=== PATIENT | female | born 1995 | race African-American/Black ===

== ENCOUNTER 2024-07-27 19:49 | Emergency (ER) | payer OTHER ==
[~2024-07-27] VITALS: Ht 167.6 cm; Wt 108.9 kg
[2024-07-27] MEDS: ONDANSETRON HCL 4 MG/5 ML SOLUTION PO ONE (21:21)
[2024-07-27] MEDS: KETOROLAC TROMETHAMINE 15 MG/ML VIAL IM ONE (21:21)
[2024-07-27 21:31] LABS: PREGNANCY TEST URINE QUAL NEGATIVE (NEGATIVE)
[2024-07-27] MEDS ORDERED: IBUP-1953 PO (21:55)
[2024-07-27] MEDS ORDERED: ACET-2030 PO (21:55)
[2024-07-27 23:04] VITALS: BP 135/90; TEMP 98; O2SAT 95
== END 2024-07-27 23:05 | disposition home or self-care (01) ==
LOC: ER 20:04
DX: S13.4XXA Sprain of ligaments of cervical spine, initial encounter (principal); V43.52XA Car driver injured in collision with other type car in traffic accident, initial encounter; Y93.89 Activity, other specified; Y92.488 Other paved roadways as the place of occurrence of the external cause; Y99.8 Other external cause status
CPT/HCPCS: 99284; 96372; 72100; 72074; 84703; J1885; Q0162